=== PATIENT | female | born 1990 | race Caucasian/White ===

== ENCOUNTER 2016-08-13 09:13 | Emergency (ER) | payer BC ==
[2016-08-13 09:35] VITALS: BP 103/67
--- NOTE | 2016-08-13 09:59 | UC ---
UC General HPI - HPI Summary HPI Summary: The patient comes in today for: 1. Right-sided facial swelling Onset: Yesterday. Palliative/provocative: Moving her jaw to the right makes it worse. Quality: Sore. Region: Right face. Severity: 310 Time: Constant. Associated symptoms: PRevious history: She thinks that she may have had it when she was in college. Previous treatment: Benadryl taken (25 mg) 5 PM yesterday. No help. * - History of Current Complaint Chief Complaint: UCGeneralIllness Stated Complaint: SWOLLEN FACE Time Seen by Provider: 08/13/16 09:52 Hx Obtained From: Patient - Allergy/Home Medications Allergies/Adverse Reactions: Allergies Allergy/AdvReac Type Severity Reaction Status Date / Time No Known Allergies Allergy Unverified 08/13/16 09:29 Home Medications: Home Medications diPHENhydraMINE PO* [Benadryl PO 25 MG TAB*] 1 tab PO 08/13/16 [History] PMH/Surg Hx/FS Hx/Imm Hx Previously Healthy: Yes - Surgical History Surgical History: Yes Surgery Procedure, Year, and Place: LEFT COLLAR BONE- 7 PINS - Family History Known Family History: Negative: Hypertension, Diabetes - Social History Occupation: Employed Full-time Alcohol Use: Occasionally Substance Use Type: None Smoking Status (MU): Never Smoked Tobacco Review of Systems Constitutional: Negative Skin: Negative Eyes: Negative ENT: Negative Respiratory: Negative Cardiovascular: Negative Gastrointestinal: Negative Genitourinary: Negative Motor: Negative All Other Systems Reviewed And Are Negative: Yes Physical Exam Triage Information Reviewed: Yes Appearance: Well-Appearing, No Pain Distress, Well-Nourished Vital Signs: Initial Vital Signs Temp 97.8 F 08/13/16 09:30 Pulse 59 08/13/16 09:30 Resp 16 08/13/16 09:30 BP 103/67 08/13/16 09:30 Pulse Ox 99 08/13/16 09:30 Vital Signs Reviewed: Yes Eyes: Positive: Conjunctiva Clear. Negative: Discharge ENT: Positive: Hearing grossly normal, Other: - Sinuses: She has some tenderness to percussion of the right frontal and maxillary sinuses. TMJ: She has some soreness to palpation of the TMJ. She also had soreness with palpation of the outer mandibular/gum line. No percussion tenderness to upper or lower right teeth. There is no marked swelling of the right face compared to the left. And there is certainly no erythema or edema of the right face.. Negative: Pharyngeal erythema, Nasal congestion, Nasal drainage, TM bulging, TM dull, TM red, Tonsillar swelling, Tonsillar exudate Dental: Negative: Gross Decay/Caries @, Dental Fracture @ Neck: Positive: Supple, Nontender, No Lymphadenopathy. Negative: Nuchal Rigidity Respiratory: Positive: Lungs clear, No respiratory distress, No accessory muscle use. Negative: Rhonchi, Wheezing Cardiovascular: Positive: RRR, No Murmur Abdomen Description: Positive: Nontender, No Organomegaly, Soft. Negative: Distended, Guarding Musculoskeletal: Positive: Strength Intact, ROM Intact, No Edema Neurological: Positive: Alert, Muscle Tone Normal Psychological: Positive: Age Appropriate Behavior, Consolable Skin: Negative: rashes, breakdown Course/Dx - Differential Dx - Multi-Symptom Provider Diagnoses: Facial swelling. Sinusitis. TMJ syndrome. pulpitits Discharge - Discharge Plan Condition: Stable Disposition: HOME Patient Education Materials: Temporomandibular Disorder (ED), Sinusitis (ED) Referrals: Amirah Mueller MD [Primary Care Provider] - 1 Week (Please see your primary care provider in a week to see how well you are doing. If you get worse, please be seen sooner in the ER or through us.)
== END 2016-08-13 10:15 | disposition home or self-care (01) ==
LOC: UCEAST 09:13
DX: R22.0 Localized swelling, mass and lump, head (principal); J32.9 Chronic sinusitis, unspecified; M26.629 Arthralgia of temporomandibular joint, unspecified side; K04.01 Reversible pulpitis
CPT/HCPCS: 99202; G0463

== ENCOUNTER 2016-08-15 07:15 | Emergency (ER) | payer BC ==
[2016-08-15 07:25] VITALS: BP 117/69
[2016-08-15] MEDS ORDERED: NS 0.9% 1000 ML* 1,000 ML IV ONE (07:43)
[2016-08-15 08:09] LABS: Hematocrit 41 % (35-47); Hemoglobin 13.8 g/dl (12.0-16.0); Mean Corpuscular HGB Conc 33 g/dl (31-36); Mean Corpuscular Hemoglobin 32 pg (27-31); Mean Corpuscular Volume 95 fL (80-97); Mean Platelet Volume 9 um3 (7.4-10.4); Red Blood Count 4.38 10^6/ul (4.0-5.4); Red Cell Distribution Width 13 % (10.5-15); White Blood Count 4.2 10^3/ul (3.5-10.8)
[2016-08-15 08:25] LABS: ALT 10 U/L (7-52); AST 12 U/L (13-39); Albumin 4.2 g/dL (3.2-5.2); Alkaline Phosphatase 37 U/L (34-104); Anion Gap 3 mmol/L (2-11); BUN/Creatinine Ratio 18.2 (8-20); Blood Urea Nitrogen 14 mg/dL (6-24); C Reactive Protein < 1.00 mg/L (< 5.00); CO2 Carbon Dioxide 25 mmol/L (22-32); Calcium 9.1 mg/dL (8.6-10.3); Chloride 110 mmol/L (101-111); EGFR African American 119.5 (>60); EGFR Non-African American 92.9 (>60); Globulin 2.7 g/dL (2-4); Glucose 90 mg/dL (70-100); Potassium 3.9 mmol/L (3.5-5.0); Sodium 138 mmol/L (133-145); Total Protein 6.9 g/dL (6.4-8.9)
[2016-08-15] MEDS ORDERED: Iohexol 300* (CONTRAST) 10 ML SDV IV ONE (08:38)
--- NOTE | 2016-08-15 09:15 | RAD ---
HISTORY: Swelling right face COMPARISONS: None TECHNIQUE: Multiple contiguous axial CT scans were obtained of the face with intravenous contrast, with coronal and sagittal multiplanar reformations. FINDINGS: BONES: There is no displaced fracture or dislocation. The orbital rim is intact. The zygomatic arch is intact. The pterygoid plates are intact. ORBITS: The globes are round. The optic nerves are symmetric. The extraocular musculature is normal. There is no post septal or intraconal inflammatory change. There is no retrobulbar hematoma. PARANASAL SINUSES: The paranasal sinuses are clear. BRAIN AND SOFT TISSUE: There is mild right frontal scalp and supraorbital soft tissue swelling. There is mild stranding of the subcutaneous fat along the right face. OTHER: None. IMPRESSION: MILD SOFT TISSUE SWELLING. THERE IS NO LOCULATED FLUID COLLECTION. THERE IS NO LYMPHADENOPATHY BY SIZE CRITERIA. OTHERWISE UNREMARKABLE CT OF THE FACE.
--- NOTE | 2016-08-15 09:45 | ED ---
Vonda Butler Alfonso, scribed for Adam Glover MD on 08/15/16 at 0808 . Allergic Reaction/Systemic - HPI Summary HPI Summary: This patient is a 25 year old female presenting accompanied by mother to [facility] c /o facial swelling since 3 days ago. She presented to [facility] 2 days ago for the same cc and was given abx and pain medication prescriptions with provider diagnoses of facial swelling, sinusitis, TMJ syndrome, and pulpitits. She states the swelling began in her right jaw and radiated to the eyes and forehead. Mother reports it is swollen down in the bottom of the gums and there is a lump on her forehead. She rates the pain 2/10 in severity. Sx aggravated and alleviated by nothing. She denies ear pain. - History of Current Complaint Chief Complaint: EDRashSkinAbscess Time Seen by Provider: 08/15/16 07:35 Hx Obtained From: Patient, Family/Group Manager - Mother Onset/Duration: Sudden Onset, Started days ago - 3 days ago, Still Present Timing: Constant Severity Initially: Mild Severity Currently: Mild Pain Intensity: 2 Pain Scale Used: 0-10 Numeric Location: Discrete @ - right jaw, eyes, and forehead Character: Swelling Aggravating Factor(s): Nothing Alleviating Factor(s): Nothing Associated Signs And Symptoms: Positive: Other: - Negative ear pain - Allergies/Home Medications Allergies/Adverse Reactions: Allergies Allergy/AdvReac Type Severity Reaction Status Date / Time No Known Allergies Allergy Unverified 08/13/16 09:29 PMH/Surg Hx/FS Hx/Imm Hx Opthamlomology History: Denies: Hx Legally Blind EENT History: Denies: Hx Deafness - Surgical History Surgery Procedure, Year, and Place: LEFT COLLAR BONE- 7 PINS Infectious Disease History: No Infectious Disease History: Denies: Traveled Outside the [place] in Last 30 Days - Family History Known Family History: Negative: Hypertension, Diabetes - Social History Alcohol Use: Occasionally Substance Use Type: Reports: None Smoking Status (MU): Never Smoked Tobacco Review of Systems Negative: Fever Positive: Other - Negative ear pain Positive: Other - Positive swelling of the right jaw, eyes, and forehead. All Other Systems Reviewed And Are Negative: Yes Physical Exam Triage Information Reviewed: Yes Vital Signs On Initial Exam: Initial Vitals Temp Pulse Resp BP Pulse Ox 97.9 F 62 16 117/69 100 08/15/16 07:21 08/15/16 07:21 08/15/16 07:21 08/15/16 07:21 08/15/16 07:21 Vital Signs Reviewed: Yes Appearance: Positive: Well-Appearing, No Pain Distress Skin: Positive: Warm, Skin Color Reflects Adequate Perfusion, Dry Head/Face: Positive: Normal Head/Face Inspection Eyes: Positive: EOMI, SANYA ENT: Positive: Normal ENT inspection Dental: Positive: Other - No dental sx appreciated Neck: Positive: Supple, Nontender Respiratory/Lung Sounds: Positive: Clear to Auscultation, Breath Sounds Present Cardiovascular: Positive: RRR Abdomen Description: Positive: Nontender, No Organomegaly Bowel Sounds: Positive: Present Musculoskeletal: Positive: Other - Right-sided facial swelling over the parotid gland that extends above the right lateral eyebrow and underneath the right- sided jaw submandibular gland. Neurological: Positive: Normal, Sensory/Motor Intact, Alert, Oriented to Person Place, Time Psychiatric: Positive: Affect/Mood Appropriate Diagnostics - Vital Signs Vital Signs Temp Pulse Resp BP Pulse Ox 08/15/16 07:21 97.9 F 62 16 117/69 100 - Laboratory Lab Results: Lab Results 08/15/16 08/15/16 08/15/16 Range/Units 08:00 08:00 08:00 WBC 4.2 (3.5-10.8) 10^3/ul RBC 4.38 (4.0-5.4) 10^6/ul Hgb 13.8 (12.0-16.0) g/dl Hct 41 (35-47) % MCV 95 (80-97) fL MCH 32 H (27-31) pg MCHC 33 (31-36) g/dl RDW 13 (10.5-15) % Plt Count 207 (150-450) 10^3/ul MPV 9 (7.4-10.4) um3 Neut % (Auto) 55.2 (38-83) % Lymph % (Auto) 29.8 (25-47) % [place] % (Auto) 9.1 H (1-9) % Eos % (Auto) 5.1 (0-6) % Baso % (Auto) 0.8 (0-2) % Absolute Neuts (auto) 2.3 (1.5-7.7) 10^3/ul Absolute Lymphs (auto) 1.3 (1.0-4.8) 10^3/ul Absolute Monos (auto) 0.4 (0-0.8) 10^3/ul Absolute Eos (auto) 0.2 (0-0.6) 10^3/ul Absolute Basos (auto) 0 (0-0.2) 10^3/ul Absolute Nucleated RBC 0 10^3/ul Nucleated RBC % 0 INR (Anticoag Therapy) 0.95 (0.89-1.11) APTT 28.0 (26.0-36.3) seconds Sodium 138 (133-145) mmol/L Potassium 3.9 (3.5-5.0) mmol/L Chloride 110 (101-111) mmol/L Carbon Dioxide 25 (22-32) mmol/L Anion Gap 3 (2-11) mmol/L BUN 14 (6-24) mg/dL Creatinine 0.77 (0.51-0.95) mg/dL Est GFR ( Amer) 119.5 (>60) Est GFR (Non-Af Amer) 92.9 (>60) BUN/Creatinine Ratio 18.2 (8-20) Glucose 90 (70-100) mg/dL Lactic Acid (0.5-2.0) mmol/L Calcium 9.1 (8.6-10.3) mg/dL Total Bilirubin 0.50 (0.2-1.0) mg/dL AST 12 L (13-39) U/L ALT 10 (7-52) U/L Alkaline Phosphatase 37 (34-104) U/L C-Reactive Protein < 1.00 (< 5.00) mg/L Total Protein 6.9 (6.4-8.9) g/dL Albumin 4.2 (3.2-5.2) g/dL Globulin 2.7 (2-4) g/dL Albumin/Globulin Ratio 1.6 (1-3) Beta HCG, Quant < 0.60 mIU/mL 08/15/16 Range/Units 08:00 WBC (3.5-10.8) 10^3/ul RBC (4.0-5.4) 10^6/ul Hgb (12.0-16.0) g/dl Hct (35-47) % MCV (80-97) fL MCH (27-31) pg MCHC (31-36) g/dl RDW (10.5-15) % Plt Count (150-450) 10^3/ul MPV (7.4-10.4) um3 Neut % (Auto) (38-83) % Lymph % (Auto) (25-47) % [place] % (Auto) (1-9) % Eos % (Auto) (0-6) % Baso % (Auto) (0-2) % Absolute Neuts (auto) (1.5-7.7) 10^3/ul Absolute Lymphs (auto) (1.0-4.8) 10^3/ul Absolute Monos (auto) (0-0.8) 10^3/ul Absolute Eos (auto) (0-0.6) 10^3/ul Absolute Basos (auto) (0-0.2) 10^3/ul Absolute Nucleated RBC 10^3/ul Nucleated RBC % INR (Anticoag Therapy) (0.89-1.11) APTT (26.0-36.3) seconds Sodium (133-145) mmol/L Potassium (3.5-5.0) mmol/L Chloride (101-111) mmol/L Carbon Dioxide (22-32) mmol/L Anion Gap (2-11) mmol/L BUN (6-24) mg/dL Creatinine (0.51-0.95) mg/dL Est GFR ( Amer) (>60) Est GFR (Non-Af Amer) (>60) BUN/Creatinine Ratio (8-20) Glucose (70-100) mg/dL Lactic Acid 0.9 (0.5-2.0) mmol/L Calcium (8.6-10.3) mg/dL Total Bilirubin (0.2-1.0) mg/dL AST (13-39) U/L ALT (7-52) U/L Alkaline Phosphatase (34-104) U/L C-Reactive Protein (< 5.00) mg/L Total Protein (6.4-8.9) g/dL Albumin (3.2-5.2) g/dL Globulin (2-4) g/dL Albumin/Globulin Ratio (1-3) Beta HCG, Quant mIU/mL Result Diagrams: 07/05/17 08:00 08/15/16 08:00 Lab Statement: Any lab studies that have been ordered have been reviewed, and results considered in the medical decision making process. - CT Maxillofacial CT CT Interpretation Completed By: Radiologist - MILD SOFT TISSUE SWELLING. THERE IS NO LOCULATED FLUID COLLECTION. THERE IS NO LYMPHADENOPATHY BY SIZE CRITERIA. OTHERWISE UNREMARKABLE CT OF THE FACE. Allergic Reaction Course/Dx - Course Course Of Treatment: NO CRITICAL CARE TIME. DISCUSSED RESULTS WITH PATIENT. NO OBVIOUS DENTAL INFECTION. SKIN NOT HOT TO TOUCH/NO ERYTHEMA. THE SWELLING IS NOT OBVIOUSLY CELLULITIS BUT, WILL TREAT WITH CLINDAMYCIN. PATIENT WILL F/U PMD , RETURN IF WORSE. DISCHARGE HOME STABLE. - Diagnoses Provider Diagnoses: Right facial swelling Discharge - Discharge Plan Condition: Stable Disposition: HOME Prescriptions: Clindamycin Cap(NF) [Cleocin 300 mg Cap(NF)] 300 mg PO Q6H #40 cap Referrals: Amirah Mueller MD [Primary Care Provider] - Additional Instructions: FOLLOW UP WITH YOUR DOCTOR FOR YOUR FACIAL SWELLING. START THE ANTIBIOTIC, CLINDAMYCIN. YOU CAN TAKE BENADRYL DIRECTED NEEDED. RETURN TO THE EMERGENCY DEPARTMENT FOR ANY WORSENING OF YOUR CONDITION; FEVER, YOU FEEL ILL, PAIN OR QUESTIONS OR CONCERNS. The documentation as recorded by the Vonda jones Alfonso accurately reflects the service I personally performed and the decisions made by me, Adam Glover MD.
== END 2016-08-15 10:09 | disposition home or self-care (01) ==
LOC: ED 07:15
DX: R22.0 Localized swelling, mass and lump, head (principal)
CPT/HCPCS: 36415; 70487; 80053; 83605; 84702; 85025; 85610; 85730; 86140; 99282; Q9967

== ENCOUNTER 2023-01-21 11:32 | Inpatient (IN) ==
[2023-01-21] MEDS ORDERED: Buffered Lidocaine 1% SYRIN 1 ml INTRADERM ONE (12:51)
[2023-01-21] MEDS ORDERED: Lidocaine 1% VIAL 10 MG/ML 30 ML VIAL INJ PRN (12:51)
[2023-01-21] MEDS ORDERED: Promethazine INJ(RESTRICTED) 25 MG/ML 1 ml VIAL IV PRN (12:51)
[2023-01-21] MEDS ORDERED: Lactated Ringers 1000 ml BAG 1,000 ML IV ONE (12:51)
[2023-01-21] MEDS ORDERED: Nalbuphine 10 MG/ML 1 ML VIAL IV PRN (12:51)
[2023-01-21] MEDS ORDERED: Ondansetron 4 mg VIAL 2 MG/ML 2 ml VIAL IV PRN (12:56)
[2023-01-21] MEDS ORDERED: miSOPROStol 100 mcg TAB PO ONE ×3 (12:56→23:48)
[2023-01-21] MEDS ORDERED: Calcium Carb (TUMS) 500 mg CHEW TAB PO PRN (12:56)
[2023-01-21] MEDS ORDERED: Lactated Ringers 1000 ml BAG 1,000 ML IV SCH (13:00)
[2023-01-21 14:36] LABS: ABS Eosinophils 0.1 10^3/uL (0.0-0.5); ABS Lymphocytes 1.4 10^3/uL (1.0-4.8); ABS Monocytes 0.5 10^3/uL (0.0-0.9); ABS Neutrophils 6.7 10^3/uL (1.5-7.6); ABS Nucleated RBC 0.01 10^3/ul; Eosinophil % 0.9 %; Hematocrit 36.2 % (35-45); Hemoglobin 12.7 g/dL (11.5-14.3); Lymphocyte % 16.2 %; Mean Corpuscular Hemoglobin 31.9 pg (27-33); Mean Corpuscular Volume 91.3 fL (80-97); Mean Platelet Volume 9.1 fL (7.5-11.2); Nucleated Red Blood Cells % 0.1 %/100WBC (0.0-0.8); Platelet Count 237 10^3/uL (150-450); Red Blood Count 3.96 10^6/uL (3.63-4.92); Red Cell Distribution Width 12.9 % (12-17); White Blood Count 8.7 10^3/uL (3.8-11.8)
[2023-01-21 15:20] LABS: Urine Benzodiazepine Screen None Detected (None Detect); Urine Cannabinoids Screen None Detected (None Detect); Urine Opiates Screen None Detected (None Detect)
[2023-01-21] MEDS: guaiFENesin 100 mg/5 ml LIQ unit dose cup PO PRN (18:10)
[2023-01-22] MEDS: guaiFENesin 100 mg/5 ml LIQ unit dose cup PO PRN ×4 (00:15→22:37)
[2023-01-22] MEDS ORDERED: Lidocaine 1.5% EPI 1:200,000 30 ML SDV ONE (02:45)
[2023-01-22] MEDS ORDERED: OBEPIDURAL (200 ML) 200 ML EPIDURAL ONE (02:45)
[2023-01-22] MEDS ORDERED: Sodium Citrate/Citric Acid LIQ 15 ML UDC PO PRN (04:09)
[2023-01-22] MEDS ORDERED: Lactated Ringers 1000 ml BAG 1,000 ML IV ONE (04:09)
[2023-01-22] MEDS ORDERED: Phenylephrine 40 mcg/mL 10mL (400mcg) SYRINGE IV PUSH PRN ×2 (04:09)
[2023-01-22] MEDS ORDERED: Lactated Ringers 1000 ml BAG 1,000 ML IV SCH ×2 (05:00→15:00)
[2023-01-22] MEDS ORDERED: OBEPIDURAL (200 ML) 200 ML EPIDURAL SCH (05:00)
[2023-01-22] MEDS ORDERED: Oxytocin in LR 20,000 MILLI.UNIT/1,000 ML BAG IV SCH ×2 (05:35→15:00)
[2023-01-22] MEDS ORDERED: Dibucaine 1% OINT 28.35 GM TUBE PR PRN (14:59)
[2023-01-22] MEDS ORDERED: Witch Hazel PAD JAR TOPICAL PRN (14:59)
[2023-01-22] MEDS ORDERED: RHO D Immune Globulin (HUMAN) 300 MCG = 1,500 I.U. INJ IM ONE (15:00)
[2023-01-22 18:56] LABS: Urine Appearance Cloudy; Urine Bacteria 1+ (Absent); Urine Bilirubin Negative (Negative); Urine Blood 3+ (Negative); Urine Glucose Negative (Negative); Urine Ketones Negative (Negative); Urine Nitrite Negative (Negative); Urine Protein 3+(>=500 mg/dL) (Negative); Urine Red Blood Cell 3+(>10/hpf) (Absent); Urine Specific Gravity 1.018 (1.002-1.030); Urine Squamous Epithelial Cell Present (Absent); Urine Urobilinogen Negative (Negative); Urine White Blood Cell 2+(11-20/hpf) (Absent)
[2023-01-22 19:00] LABS: Urine Color Amber
[2023-01-23] MEDS: guaiFENesin 100 mg/5 ml LIQ unit dose cup PO PRN (03:53)
[2023-01-23 08:41] LABS: ABS Eosinophils 0.1 10^3/uL (0.0-0.5); ABS Lymphocytes 1.7 10^3/uL (1.0-4.8); ABS Monocytes 0.7 10^3/uL (0.0-0.9); ABS Neutrophils 11.7 10^3/uL (1.5-7.6); ABS Nucleated RBC 0.01 10^3/ul; Eosinophil % 0.8 %; Hematocrit 32.8 % (35-45); Hemoglobin 11.4 g/dL (11.5-14.3); Lymphocyte % 12.1 %; Mean Corpuscular Hemoglobin 31.7 pg (27-33); Mean Corpuscular Hgb Conc 34.7 g/dL (31-36); Mean Corpuscular Volume 91.3 fL (80-97); Mean Platelet Volume 8.6 fL (7.5-11.2); Platelet Count 179 10^3/uL (150-450); Red Blood Count 3.59 10^6/uL (3.63-4.92); Red Cell Distribution Width 12.7 % (12-17); White Blood Count 14.2 10^3/uL (3.8-11.8)
[2023-01-24 08:33] VITALS: BP 124/65
== END 2023-01-24 12:19 | disposition home or self-care (01) | DRG 560 ==
LOC: MCHOBOUT 11:32 → MCHOB 12:47
PROVIDERS: ADMIT Advanced Practice Midwife; ATTEND Advanced Practice Midwife